=== PATIENT | female | born 2005 | race African-American/Black ===

== ENCOUNTER 2024-07-14 00:29 | Emergency (ER) | payer MEDICAID ==
[~2024-07-14] VITALS: Ht 157.5 cm; Wt 54.4 kg
[2024-07-14] MEDS ORDERED: predniSONE 20 MG TABLET ONE (00:57)
[2024-07-14] MEDS: predniSONE 20 MG TABLET PO ONE (00:58)
[2024-07-14 00:59] VITALS: O2SAT 99
[2024-07-14] MEDS: ALBUTEROL FS 2.5 MG/3 ML VIAL.NEB NEB ONE (00:59)
[2024-07-14] MEDS: IPRATROPIUM NEB FS 0.5 MG/2.5 ML AMPUL.NEB NEB ONE (00:59)
[2024-07-14 01:00] VITALS: O2SAT 99
[2024-07-14] MEDS ORDERED: ALBUTEROL FS 2.5 MG/3 ML VIAL.NEB ONE (01:04)
[2024-07-14] MEDS ORDERED: IPRATROPIUM NEB FS 0.5 MG/2.5 ML AMPUL.NEB ONE (01:04)
[2024-07-14 01:09] VITALS: O2SAT 99
[2024-07-14 01:19] VITALS: O2SAT 100; O2SAT 99
[2024-07-14 02:40] LABS: PREGNANCY TEST URINE QUAL NEGATIVE (NEGATIVE)
[2024-07-14] MEDS ORDERED: NEBU1KIT3 MC (02:46)
[2024-07-14] MEDS ORDERED: ALBU18HF2 INH (02:46)
[2024-07-14] MEDS ORDERED: PRED50TA PO (02:46)
[2024-07-14] MEDS ORDERED: ALBU2.5V38 NEB (02:46)
[2024-07-14 02:56] VITALS: BP 122/70; TEMP 98.4; O2SAT 100
== END 2024-07-14 02:57 | disposition home or self-care (01) ==
LOC: ER 00:34
DX: J45.901 Unspecified asthma with (acute) exacerbation (principal); R00.0 Tachycardia, unspecified
CPT/HCPCS: 99285; 84703; 94640; J7512